=== PATIENT | female | born 2000 | race Caucasian/White ===

== ENCOUNTER 2022-07-11 07:33 | Inpatient (IN) ==
[2022-07-11] MEDS ORDERED: LIDOCAINE 1% LOCAL 20 ML VIAL INFIL PRN (08:05)
[2022-07-11] MEDS ORDERED: OXYTOCIN 30 UNITS/500 ML BAG IV PRN ×3 (08:05→18:39)
--- NOTE | 2022-07-11 08:27 | History & Physical Report ---
Date of Service July 11, 2022 Assessment & Plan (1) Encounter for induction of labor: Plan: Patient is a 21 yo at 40+1 WGA presenting to labor and delivery for induction. Blood type: O+, GBS neg, rubella immune Plan to start oxytocin and rupture membranes later if necessary Proceed with labor and vaginal delivery Admission and Anticipated Discharge Date Admission Date: July 11, 2022 History of Present Illness Primary Care Provider: Tian Barba MD Patient is a 21 yo female currently at 40+1WGA with an PEGGY 07/10/2022 as determined by LMP who is here for induction of labor. Her was uncomplicated. Denies timeable contractions; movement present; denies fluid loss; denies bloody show External FHT and external uterine monitors used; category I tracing; normal FHT variability Had regular appointments with OB. Labs: Blood type: O+ Antibody screen: neg Hgb: 11.8 (today) Hct: 33.8% (today) WBC: 9.57 (today) Plt: 175 (today) Rubella: immune VDRL/RPR: neg Gonorrhea: neg Chlamydia: neg HIV: neg HbSAg: neg GBS: neg Other screens: cff-DNA: low risk CF: declined SMA: declined Allergies Allergy/AdvReac Type Severity Reaction Status Date / Time No Known Allergies Allergy Verified 07/10/22 11:40 Home Medications Medication Instructions Recorded Confirmed Type vit 168-iron 27 mg-folic 1 cap PO DAILY #30 caps 02/22/22 07/11/22 Rx acid 800 mcg-omega3 235 mg capsule (One-A-Day -1) Patient History Medical History Chlamydia Migraine Seasonal allergies Surgical History S/P colonoscopy Family History Family/Other Ovarian cancer maternal great aunt Denies family history of Breast cancer Colorectal cancer Social History Smoking Status: Former smoker Tobacco Type: E-cigarettes / Vaping Second Hand Exposure: Yes; Hx Alcohol Use: No Hx Substance Use: No Preferred Language: Spanish Communication Ability: Effective Flag Maker Required: No Beliefs That Will Affect Care: None marital status: Single marital status details: vic Skelton (19) [phone] Current Living Situation: Family Current Living Situation Comment: lives with vic, his grandmother, dog, rabbit, cat-fob changing litter current occupational status: employed current occupation: [employer] Other Information That Helps Us Care for You: No Feels Safe at Home: Yes Safety Concerns: Feels Safe At This Time Assistive Devices: None Review of Systems Denies fever, chills, sweats. Denies SOB, difficulty breathing, chest pain, palpitations, and chest pressure. Denies breast pain. Denies dysuria. Denies headache or changes in vision. Physical Exam Physical Exam: General: Alert and oriented. No acute distress CV: Regular rate and rhythm. No murmurs. Respiratory: CTA bilaterally. No rhonchi, wheezes, or crackles. No increased work of breathing. Abdomen: Gravid; Soft, nontender upon palpation Pelvic: Dilated 4 cm; Effacement 90%; Station -[address] Sibley Lower extremities: No LE edema. No deep calf pain. Paige's negative bilaterally. Results & Data ([facility]) Vital Signs (Past 12 Hours) Vital Signs Temp Pulse Resp BP 07/11/22 07:48 36.8 C 75 16 128/79 07/11/22 07:44 75 128/79 Supervising Physician Co-Signing Physician Notes Resident Physician Supervision Note: I interviewed and examined the patient. Discussed with Dr. Krause and agree with findings and plan as documented in the note. Any exceptions or cl arifications are listed here: [None] Documented By: Thea Bhardwaj MD, FACOG Resident Activity Tracking Resident Involvement: Resident Care Provided Care Provided: OB Delivery
[2022-07-11 08:41] LABS: Hematocrit (blood only) 33.8 % (34.1-44.9); Hemoglobin 11.8 g/dl (12.0-16.0); Mean Corpuscular Hemoglobin 30.6 pg (25.0-34.0); Mean Corpuscular Hgb Conc 34.9 g/dL (32.0-36.0); Mean Corpuscular Volume 87.8 fL (80.0-100.0); Mean Platelet Volume 10.9 fL (9.4-12.3); Platelet Count 175 K/uL (130-400); RDW Coefficient of Variation 12.6 % (11.5-14.5); RDW Standard Deviation 39.9 fL (36.4-46.3); Red Blood Count 3.85 M/uL (3.93-5.22); White Blood Count 9.57 K/ul (4.8-10.8)
[2022-07-11] MEDS: LACTATED RINGER'S 1,000 ML IV PRN ×2 (09:10→13:05)
[2022-07-11] MEDS ORDERED: ePHEDrine sulfate 50 MG/ML AMP ONE (12:37)
[2022-07-11] MEDS ORDERED: fentaNYL citrate 100 MCG/2 ML VIAL ONE (12:40)
[2022-07-11] MEDS ORDERED: fentaNYL 2MCG/ML ROPIVACAINE 1.25MG/ML 100 ML BAG EPI ONE (12:41)
[2022-07-11] MEDS ORDERED: SODIUM CHLORIDE 0.9% INJ 10 ML VIAL ONE (12:41)
[2022-07-11] MEDS ORDERED: LIDOCAINE 2%/EPINEPHRINE 1:200,000 20 ML SDV ONE (12:41)
[2022-07-11] MEDS ORDERED: BUPIVACAINE 0.25% 30 ML VIAL ONE (12:41)
[2022-07-11] MEDS ORDERED: diphenhydrAMINE 50 MG/ML VIAL IV PRN (12:57)
[2022-07-11] MEDS ORDERED: NALBUPHINE HCL INJ 10 MG/ML AMP IV PRN (12:57)
[2022-07-11] MEDS ORDERED: NALOXONE HCL 0.4 MG/1 ML VIAL/CARP IV PRN (12:57)
[2022-07-11] MEDS ORDERED: NALOXONE HCL 1 MG in SODIUM CHLORIDE 0.9% 1000ML 1,000 ML IV PRN (12:57)
[2022-07-11] MEDS ORDERED: ePHEDrine sulfate 50 MG/ML AMP IV PRN (12:57)
[2022-07-11] MEDS ORDERED: fentaNYL 2MCG/ML ROPIVACAINE 1.25MG/ML 100 ML BAG EPI PRN (12:57)
[2022-07-11] MEDS ORDERED: ONDANSETRON INJ 2 MG/ML 2 ML VIAL IV PRN (12:57)
--- NOTE | 2022-07-11 13:00 | Anesthesiology Consultation ---
Date of Service July 11, 2022 Assessment & Plan (1) Encounter for pre-operative examination: Chart Review Chart Review: Patient NOT seen in Pre Admission Testing and Acceptable Risk for Labor Epidural Consults Requested none History Height/Weight Height: 5 ft 2 in Weight: 68.039 kg Allergies Allergy/AdvReac Type Severity Reaction Status Date / Time No Known Allergies Allergy Verified 07/10/22 11:40 Medications Home Medications Medication Instructions Recorded Confirmed Last Taken vit 168-iron 27 mg-folic 1 cap PO DAILY #30 caps 02/22/22 07/11/22 07/09/22 21:00 acid 800 mcg-omega3 235 mg capsule (One-A-Day -1) Active Medications Generic Name Dose Route Start Last Admin Trade Name Freq PRN Reason Stop Dose Admin Oxytocin 30 units in 500 mls @ 9 mls/hr 07/11/22 08:05 07/11/22 11:34 Pitocin IV 07/13/22 08:04 0.54 units/hr .Q24H PRN 9 mls/hr Labor Induction/Augmentation Titration Protocol 0.54 UNITS/HR Lactated Ringer's 1,000 mls @ 125 mls/hr 07/11/22 08:05 07/11/22 13:05 Lr IV 07/13/22 08:04 999 mls/hr .Q8H PRN Administration L&D Protocol Protocol Past Medical History Medical History Chlamydia Migraine Seasonal allergies Exercise / Class Metabolic Activity II 4-5 Yardwork/Stairs/Walk up hill Past Family History Family History Family/Other Ovarian cancer maternal great aunt Denies family history of Breast cancer Colorectal cancer Past Surgical History Surgical History S/P colonoscopy Past Anesthesia History No Hx of Anesthesia Complications and No Family Hx of Anesthesia Complications Social History Smoking Status: Former smoker tobacco type: e-cigarettes Hx Alcohol Use: No Hx Substance Use: No substance use type: does not use Physical Exam Vital Signs Last Vital Signs Temp 36.8 C 07/11/22 12:55 Pulse 83 07/11/22 13:24 Resp 18 01/04/23 12:55 BP 138/86 07/11/22 13:24 Pulse Ox 98 07/11/22 13:21 Testing Laboratory Results 07/11/22 08:13
[2022-07-11] MEDS ORDERED: ACETAMINOPHEN 325 MG TAB PO PRN (18:39)
[2022-07-11] MEDS ORDERED: bisacodyL 10 MG SUPP PR PRN (18:39)
[2022-07-11] MEDS ORDERED: DIPHTHERIA/TETANUS/PERTUSSIS 0.5 ML SYR/VIAL IM ONE (18:39)
[2022-07-11] MEDS ORDERED: HYDROCORTISONE ACETATE 25 MG SUPP PR PRN (18:39)
--- NOTE | 2022-07-11 18:59 | Anesthesia Procedure Note ---
Date of Service July 11, 2022 Anesthesia Post Epidural Note Vital Signs Vital Signs: Temp Pulse Resp BP Pulse Ox 36.9 C 89 20 137/73 97 07/11/22 17:30 07/11/22 18:51 07/11/22 18:50 07/11/22 18:51 07/11/22 18:31 Pain Intensity Bilateral Abdomen: Pain Intensity: 0 Notes Mental Status: alert / awake / arousable and participated in evaluation Nausea / Vomiting: adequately controlled Pain: adequately controlled Airway Patency, RR, SpO2: stable & adequate BP & HR: stable & adequate Hydration State: stable & adequate Neuraxial Anesthesia: was administered and sensory block is resolving Anesthetic Complications: no major complications apparent and Pt Satisfied with anesthetic care Epidural: Removed without complications and With tip intact
--- NOTE | 2022-07-11 19:14 | Delivery Summary ---
Vaginal Delivery Summary Date of Service July 11, 2022 Vaginal Delivery Summary and 1st Degree LAC Patient is a 21-year-old G1, P0 female EDC of 07/10/2022 who presented at 40-1/7 weeks for induction of labor because of postterm . Pitocin augmentation was begun, she received effective epidural analgesia. Membranes were ruptured for clear fluid. She progressed to full dilation with the urge to push. She pushed effectively over intact perineum for delivery of a viable female infant over intact perineum. After the head was delivered, there was a mild shoulder dystocia resolved with hyperflexion of the hips and suprapubic pressure. After the anterior shoulder was delivered, the rest the delivered easily and was placed on the mother's abdomen for further attention and drying. The infant was then vigorous crying and moving all 4 limbs. The cord was clamped and cut after approximately 30 seconds. After cord blood was obtained, the placenta was expressed intact with a three-vessel cord. A first- degree vaginal laceration was repaired with 3-0 chromic in the usual fashion. bleeding was controlled with dilute Pitocin and fundal massage. Estimated blood loss was 200 cc. The bladder was straight cathed for approximately 20 cc of urine after the delivery. Mother and infant were doing well after delivery. MNP Vaginal Delivery Charge Delivery Type Details: and 1st Degree LAC
[2022-07-11] MEDS: IBUPROFEN 600 MG TAB PO PRN (19:54)
[2022-07-11] MEDS: BENZOCAINE 20% AER SPR 82.5 GM CAN EXT PRN (19:55)
[2022-07-11] MEDS: DOCUSATE SODIUM 100 MG CAP PO SCH (22:15)
[2022-07-12] MEDS: IBUPROFEN 600 MG TAB PO PRN ×3 (02:43→16:12)
--- NOTE | 2022-07-12 06:30 | Obstetrical Progress Note ---
Date of Service <Thais Vannreaganhenrry - Last Filed: 07/12/22 06:57> July 12, 2022 Assessment & Plan <Thais Krause - Last Filed: 07/12/22 06:57> (1) care following vaginal delivery: Patient is PPD 1 s/p and doing well. - Eating well, voiding well, ambulating well - Vitals reviewed and within normal limits - Pain well controlled with analgesics - OOB, ambulation, diet progression as tolerated - Blood type: O+, GBS neg, rubella immune - Plan to discharge tomorrow - After discharge, 6 week follow up with Dr. Sibley <Thea Bhardwaj MD, FACOG - Last Filed: 07/12/22 07:26> (1) care following vaginal delivery: Subjective <Thais Krause - Last Filed: 07/12/22 06:57> Patient is a 21 yo female who is now PPD #1 following spontaneous vaginal delivery at 40+1 weeks. Reports feeling well this morning. She endorses abdominal cramping and 3-5/10 pain well managed on analgesics. Voiding without issue. Tolerating regular meals overnight and able to ambulate some. She has passed gas and no bowel movements. Persistent lochia with some improvement this morning. Currently bottle feeding. Review of Systems Denies fever, chills, sweats. Denies SOB, difficulty breathing, chest pain, palpitations, and chest pressure. Denies breast pain. Denies dysuria. Denies headache or changes in vision. Physical Exam <Thais VannDO chanda - Last Filed: 07/12/22 06:57> General: Alert and oriented. No acute distress. CV: Regular rate and rhythm. No murmurs. Respiratory: CTA bilaterally. No rhonchi, wheezes, or crackles. No increased work of breathing. Abdomen: Positive bowel sounds. Soft, nontender, non distended. Uterus: Fundus firm and palpable 2 cm below the umbilicus. Lower extremities: No LE edema. No deep calf pain. Paige's negative bilaterally. Results & Data ([facility]) <Thais VannDO chanda - Last Filed: 07/12/22 06:57> Vital Signs (Past 12 Hours) Vital Signs Temp Pulse Pulse Resp BP BP Pulse Ox 07/12/22 03:00 36.8 C 54 L 16 146/93 H 07/11/22 23:00 36.8 C 74 18 130/79 07/11/22 22:06 36.8 C 85 16 124/83 97 07/11/22 20:52 18 07/11/22 19:35 36.7 C 18 07/11/22 19:05 37.0 C 18 07/11/22 18:50 20 07/11/22 18:35 20 07/11/22 20:52 73 120/64 07/11/22 19:36 88 153/73 H 07/11/22 19:21 76 147/63 H 07/11/22 19:07 88 157/65 H 07/11/22 18:51 89 137/73 07/11/22 18:35 98 H 140/71 07/11/22 18:31 93 H 97 O2 Del Method 07/12/22 03:00 Room Air 07/11/22 23:00 Room Air 07/11/22 22:06 Room Air 07/11/22 20:52 07/11/22 19:35 07/11/22 19:05 07/11/22 18:50 07/11/22 18:35 07/11/22 20:52 07/11/22 19:36 07/11/22 19:21 07/11/22 19:07 07/11/22 18:51 07/11/22 18:35 07/11/22 18:31 <Thea Bhardwaj MD, FACOG - Last Filed: 07/12/22 07:26> Co-Signing Physician Notes Resident Physician Supervision Note: I interviewed and examined the patient. Discussed with Dr. Krause and agree with findings and plan as documented in the note. Any exceptions or clarifications are listed here: [None] Documented By: Thea Bhardwaj MD, FACOG Resident Activity Tracking <Thais Krause DO - Last Filed: 07/12/22 06:57> Resident Involvement: Resident Care Provided Care Provided: OB Delivery
[2022-07-12 06:31] LABS: Hematocrit (blood only) 32.5 % (34.1-44.9); Hemoglobin 11.6 g/dl (12.0-16.0); Mean Corpuscular Hemoglobin 30.6 pg (25.0-34.0); Mean Corpuscular Hgb Conc 35.7 g/dL (32.0-36.0); Mean Corpuscular Volume 85.8 fL (80.0-100.0); Mean Platelet Volume 10.9 fL (9.4-12.3); Platelet Count 178 K/uL (130-400); RDW Coefficient of Variation 12.5 % (11.5-14.5); RDW Standard Deviation 38.7 fL (36.4-46.3); Red Blood Count 3.79 M/uL (3.93-5.22); White Blood Count 15.71 K/ul (4.8-10.8)
[2022-07-12] MEDS ORDERED: PRENATAL VITAMIN 1 TAB PO SCH (08:00)
[2022-07-12] MEDS: DOCUSATE SODIUM 100 MG CAP PO SCH ×2 (08:29→08:31)
[2022-07-12] MEDS: BENZOCAINE 20% AER SPR 82.5 GM CAN EXT PRN (19:35)
[2022-07-12] MEDS ORDERED: bisacodyL 5 MG TABEC PO SCH (20:00)
== END 2022-07-12 20:15 | disposition home or self-care (01) | DRG 807 ==
LOC: 4S1 07:33 → 4E2 21:40

== ENCOUNTER 2024-10-22 16:24 | Inpatient (IN) ==
[2024-10-22] MEDS ORDERED: OXYTOCIN 30 UNITS/NSS 30 UNITS/500 ML BAG IV PRN (17:23)
[2024-10-22] MEDS ORDERED: LIDOCAINE 1% LOCAL 20 ML VIAL INFIL PRN (17:23)
--- NOTE | 2024-10-22 17:25 | History & Physical Report ---
Date of Service October 22, 2024 Assessment & Plan (1) Encounter for supervision of normal in multigravida: Plan srom for about 2.5 hours. no onset of labor at this point. Discussed immediate pitocin augmentation or expectant management with augmentation if no significant change in 6-8 hours s/p rom. Considering. Wants epidural. fetus category one. Anticipate . History of Present Illness Chief Complaint: rom Primary Care Provider: Mildred Wesley DO Patient is a 23yowf with iup at 37 4/7 who presents with gross srom at 3pm, clear. notes some cramping but no major contractions. no vb. +fm. and Delivery Plans Current everyday vaping OB Labs: Blood Type O Positive 03/31/24 Antibody Screen NEGATIVE 03/31/24 Hgb 11.4 g/dl (12.0-16.0) L 08/18/24 Hct 33.2 % (37.0-47.0) L 08/18/24 MCV 85.8 fL (80.0-100.0) 03/31/24 Plt Count 269 K/uL (130-400) 03/31/24 Rubella IgG Antibody Immune (Immune) 03/31/24 Treponema pallidum Ab Negative (Negative) 08/31/24 Hep Bs Antigen Negative (Negative) 08/31/24 Hep Bs Antigen NON-REACTIVE (NON-REACTIVE) 12/07/21 Hepatitis C Antibody Negative (Negative) 08/31/24 Hepatitis C Ab (EIA) NON-REACTIVE (NON-REACTIVE) 12/07/21 HIV 1&2 Ab/P24 Ag 4thGn Negative (Negative) 08/31/24 Glucose 1 Hr 50 gm 154 mg/dl (70-130) H 08/18/24 Maternal Serum AFP 32.7 ng/mL 05/26/24 OB Optional Labs: Chlamydia trachomatis RNA Not Detected (NotDetected) 08/26/24 Neisseria gonorrhoeae RNA Not Detected (NotDetected) 08/26/24 Thyroid Stimulating Hormone (TSH) 1.578 uIu/ml (0.300-4.500) 09/13/23 Alpha Fetoprotein Triple Screen SEE NOTE 05/26/24 Labs Reviewed: cfdna-low risk--mln afp neg gbs neg Allergies Allergy/AdvReac Type Severity Reaction Status Date / Time No Known Allergies Allergy Verified 10/22/24 16:59 Home Medications Medication Instructions Recorded Confirmed Type vitamin with calcium 1 tab PO DAILY #90 tabs 03/05/24 10/22/24 Rx no.72-iron 27 mg-folic acid 1 mg tablet ( Plus (calcium carbonate)) escitalopram oxalate 10 mg tablet 10 mg PO DAILY 07/20/24 10/22/24 History Patient History Medical History IBS (irritable bowel syndrome) LGSIL on Pap smear of cervix Migraine Seasonal allergies Chlamydia Surgical History S/P tooth extraction S/P wisdom tooth extraction S/P colonoscopy Family History Family/Other Ovarian cancer maternal great aunt Father Heart disease Grandfather (Paternal) Diabetes Denies family history of Breast cancer Colorectal cancer Social History Smoking Status: Never smoker Tobacco Type: E-cigarettes / Vaping Second Hand Exposure: Yes; Do You Dip or Chew Tobacco: No; Hx Alcohol Use: No Hx Substance Use: No Preferred Language: Liberian Communication Ability: Effective Auto Locator Required: No Beliefs That Will Affect Care: None marital status: Single marital status details: vic Nice (23) [phone] Current Living Situation: Family Current Living Situation Comment: lives with daughter current occupational status: unemployed current occupation: looking for job currently Other Information That Helps Us Care for You: No Feels Safe at Home: Yes Safety Concerns: Feels Safe At This Time Assistive Devices: None OB History Past Pregnancies Del. Date GA wks Lbr Lgth wt Sex Type del Anes Place Del Prov ? Comment 07/17/17 Aborted-Spontaneous 07/11/22 7-14 F Epidural [facility] Dr Phyllis Sibley [employer] History see above Physical Exam Constitutional: WD/WN, vitals as above Gastrointestinal (Abdomen): soft, nt, gravid Psychiatric: A+Ox3, euthymic affect Genitourinary: cx--3/100/-2 toco--pa and irritability efm--150 with mod variability, accels to 170s, no decels Results & Data Vital Signs (Past 12 Hours) Vital Signs Temp Pulse Resp BP 10/22/24 16:33 83 119/64 10/22/24 16:32 36.9 C 20 Coding Level of Care Code None Diagnoses Encounter for supervision of normal in multigravida Z34.80
[2024-10-22 17:51] LABS: Hematocrit (blood only) 32.7 % (37.0-47.0); Hemoglobin 11.3 g/dl (12.0-16.0); Mean Corpuscular Hemoglobin 28.2 pg (25.0-34.0); Mean Corpuscular Hgb Conc 34.6 g/dL (32.0-36.0); Mean Corpuscular Volume 81.5 fL (80.0-100.0); Mean Platelet Volume 10.6 fL (9.4-12.4); Platelet Count 201 K/uL (130-400); RDW Coefficient of Variation 12.2 % (11.5-14.5); Red Blood Count 4.01 M/uL (4.20-5.40); White Blood Count 8.01 K/ul (4.8-10.8)
--- NOTE | 2024-10-22 20:26 | Communication Note ---
Date of Service: October 22, 2024 category one strip, occasional contractions. is ok with starting pitocin.
[2024-10-22] MEDS: OXYTOCIN 30 UNITS/NSS 30 UNITS/500 ML BAG IV PRN (20:31)
[2024-10-22] MEDS: LACTATED RINGER'S 1,000 ML IV PRN (20:32)
--- NOTE | 2024-10-23 00:11 | Anesthesiology Consultation ---
Date of Service October 23, 2024 Assessment & Plan Chart Review Chart Review: Patient NOT seen in Pre Admission Testing and Acceptable Risk for Labor Epidural Consults Requested none ASA ASA2 Proposed Anesthesia Anesthesia Type: Labor Epidural Risk / Benefits Reviewed With: PT / POA / Parent / Guardian, Accepts Plan and Informed Consent Obtained History Height/Weight Height: 5 ft 2 in Weight: 58.513 kg Allergies Allergy/AdvReac Type Severity Reaction Status Date / Time No Known Allergies Allergy Verified 10/22/24 16:59 Medications Home Medications Medication Instructions Recorded Confirmed Last Taken vitamin with calcium 1 tab PO DAILY #90 tabs 03/05/24 10/22/24 03/07/24 no.72-iron 27 mg-folic acid 1 mg tablet ( Plus (calcium carbonate)) escitalopram oxalate 10 mg tablet 10 mg PO DAILY 07/20/24 10/22/24 Unknown Active Medications Generic Name Dose Route Start Last Admin Trade Name Freq PRN Reason Stop Dose Admin Lactated Ringer's 1,000 mls @ 125 mls/hr 10/22/24 17:23 10/22/24 20:32 Lr IV 10/23/24 17:22 125 mls/hr .Q8H PRN Administration L&D Protocol Protocol Oxytocin 30 units in 500 mls @ 13 mls/hr 10/22/24 17:23 10/22/24 23:35 Pitocin 30 Units/Nss IV 10/24/24 17:22 0.78 units/hr .Q24H PRN 13 mls/hr Labor Induction/Augmentation Titration Protocol 0.78 UNITS/HR NPO Date Last Intake of Fluids: 10/23/24 Time Last Intake of Fluids: 00:01 Date Last Intake of Solids: 10/23/24 Time Last Intake of Solids: 15:00 Past Medical History Medical History IBS (irritable bowel syndrome) LGSIL on Pap smear of cervix Migraine Seasonal allergies Chlamydia Exercise / Class Metabolic Activity 1 > 8 Run/Swim/Ski/Tennis Past Family History Family History Family/Other Ovarian cancer maternal great aunt Father Heart disease Grandfather (Paternal) Diabetes Denies family history of Breast cancer Colorectal cancer Past Surgical History Surgical History S/P tooth extraction S/P wisdom tooth extraction S/P colonoscopy Past Anesthesia History No Hx of Anesthesia Complications and No Family Hx of Anesthesia Complications History of PONV No Hx of PONV and No Hx of Motion Sickness Social History Smoking Status: Never smoker tobacco type: e-cigarettes Do You Dip or Chew Tobacco: No Hx Alcohol Use: No Hx Substance Use: No substance use type: does not use Review of Systems ROS Unobtainable: All systems reviewed & are unremarkable except as noted in HPI & below Physical Exam Vital Signs Last Vital Signs Temp 36.9 C 10/22/24 23:10 Pulse 68 10/23/24 00:02 Resp 18 10/22/24 23:10 BP 126/76 10/23/24 00:02 Pulse Ox 100 10/23/24 00:02 ENMT Mouth: no TMJ abnormality Thyromental Distance: > or= 3.5 Finger Breadths Mallampati Class: II Neck normal visual inspection and trachea midline; neck extension not limited Respiratory normal respiratory effort Auscultation: lungs clear to auscultation bilaterally Cardiovascular Rate/Rhythm: regular rate and regular rhythm Heart Sounds: no murmur Musculoskeletal Spine: normal cervical ROM Extremities: full ROM of extremities Neurologic moves all extremities Psychiatric Orientation: alert and oriented x 3 Testing Laboratory Results 10/22/24 17:34
[2024-10-23] MEDS: BUPIVACAINE 0.25% PF 30 ML VIAL ONE (00:23)
[2024-10-23] MEDS: LIDOCAINE 2%/EPINEPHRINE 1:200,000 20 ML PF ONE (00:23)
[2024-10-23] MEDS: fentANYL 2 MCG/ML BUPIVacaine 0.125%-NSS 100ML BAG ONE (00:23)
[2024-10-23] MEDS: fentaNYL citrate PF 100 MCG/2 ML VIAL ONE (00:23)
[2024-10-23] MEDS ORDERED: LIDOCAINE 2% MPF LOCAL 5 ML VIAL EPI PRN (00:30)
[2024-10-23] MEDS ORDERED: SODIUM CHLORIDE 0.9% PF INJ 10 ML VIAL EPI PRN (00:30)
[2024-10-23] MEDS ORDERED: diphenhydrAMINE 50 MG/ML VIAL IV PRN (00:30)
[2024-10-23] MEDS ORDERED: BUPIVACAINE 0.25% PF 30 ML VIAL EPI PRN (00:30)
[2024-10-23] MEDS ORDERED: NALBUPHINE HCL INJ 10 MG/ML AMP IV PRN (00:30)
[2024-10-23] MEDS ORDERED: NALOXONE HCL 1 MG in SODIUM CHLORIDE 0.9% 1,000 ML IV PRN (00:30)
[2024-10-23] MEDS ORDERED: fentaNYL citrate PF 100 MCG/2 ML VIAL EPI PRN (00:30)
[2024-10-23] MEDS ORDERED: ePHEDrine sulfate 50 MG/ML AMP IV PRN (00:30)
[2024-10-23] MEDS ORDERED: ROPIVACAINE 0.5% PF 5 MG/ML 20 ML VIAL EPI PRN (00:30)
[2024-10-23] MEDS ORDERED: fentANYL 2 MCG/ML BUPIVacaine 0.125%-NSS 100ML BAG EPI PRN (00:30)
[2024-10-23] MEDS ORDERED: NALOXONE HCL 0.4 MG/1 ML VIAL/CARP IV PRN (00:30)
--- NOTE | 2024-10-23 01:11 | Labor Progress Brief Note ---
Date of Service October 23, 2024 Subjective comfortable after epidural Assessment & Plan (1) Encounter for supervision of normal in multigravida: Plan continue current management. fetus category one. Admission and Anticipated Discharge Date Admission Date: October 22, 2024 Physical Exam Physical Exam: cx0--5/100/-2 toco--q2-4min, piit at 14 efm--130s wtih mod varability, accels to 150s, no decels Results & Data Vital Signs (Past 12 Hours) Vital Signs Temp Pulse Resp BP Pulse Ox 10/23/24 01:07 73 99 10/23/24 01:06 73 121/88 10/23/24 01:02 80 98 10/23/24 01:00 76 131/63 10/23/24 00:57 68 98 10/23/24 00:52 70 100 10/23/24 00:51 72 120/69 10/23/24 00:47 68 100 10/23/24 00:44 80 119/65 10/23/24 00:42 75 99 10/23/24 00:37 70 100 10/23/24 00:36 62 120/86 10/23/24 00:32 70 99 10/23/24 00:29 69 116/71 10/23/24 00:27 99 10/23/24 00:27 74 10/23/24 00:27 72 121/74 10/23/24 00:25 68 122/77 10/23/24 00:23 71 136/95 10/23/24 00:22 79 100 10/23/24 00:21 82 114/80 10/23/24 00:17 87 99 10/23/24 00:12 87 98 10/23/24 00:07 81 99 10/23/24 00:02 68 126/76 100 10/22/24 23:13 74 116/72 10/22/24 23:10 18 10/22/24 23:10 36.9 C 18 10/22/24 21:04 36.8 C 10/22/24 20:39 76 113/70 10/22/24 19:00 37.1 C 18 10/22/24 18:57 83 112/55 L 10/22/24 16:33 83 119/64 10/22/24 16:32 36.9 C 20 Coding Level of Care Code None Diagnoses Encounter for supervision of normal in multigravida Z34.80
[2024-10-23] MEDS: fentaNYL citrate PF 100 MCG/2 ML VIAL EPI STA (01:31)
[2024-10-23] MEDS: ePHEDrine sulfate 50 MG/ML AMP ONE (01:31)
[2024-10-23] MEDS: BUPIVACAINE 0.25% PF 30 ML VIAL EPI STA (01:31)
[2024-10-23] MEDS: SODIUM CHLORIDE 0.9% PF INJ 10 ML VIAL ONE (01:31)
[2024-10-23] MEDS: LIDOCAINE 2%/EPINEPHRINE 1:200,000 20 ML PF EPI STA (01:32)
[2024-10-23] MEDS: SODIUM CHLORIDE 0.9% PF INJ 10 ML VIAL EPI STA (01:32)
[2024-10-23] MEDS: CALCIUM CARBONATE 500 MG CHEWABLE TAB PO PRN (01:36)
--- NOTE | 2024-10-23 04:07 | Delivery Summary ---
Vaginal Delivery Summary Date of Service October 23, 2024 Vaginal Delivery Summary Pre-operative Diagnosis: at 37 5/7 weeks srom Post-operative Diagnosis: same Procedure: pitocin augmentin epidural EBL: 154cc Anesthesia: epidural Procedure: The patient pushed for one contraction and the head delivered precipitously. I then entered room. I was readily available in the call room. The head delivered in giorgio. The rest of the was then delivered by me through a nuchal cord easily. The nose and mouth were maria m suctioned. The infant was a bit floppy so the cord was clamped and cut and the infant taken to the warmer. Cord blood obtained. Placenta delivered spontaneous, intact with a three vessel cord. Cervix/sulci/rectum/perineum were intact. Hemostasis obtained with dilute pitocin and fundal massage. Apgars were 7/9. Mother and baby doing well at the end of the delivery. [facility] Vaginal Delivery Charge Delivery Type Details: [facility]
[2024-10-23] MEDS ORDERED: BENZOCAINE 20% SPRY 85 APPLN/85 GM CAN EXT PRN (04:52)
[2024-10-23] MEDS ORDERED: HYDROCORTISONE ACETATE 25 MG SUPP PR PRN (04:52)
[2024-10-23] MEDS ORDERED: OXYTOCIN 30 UNITS/NSS 30 UNITS/500 ML BAG IV PRN (04:52)
[2024-10-23] MEDS ORDERED: oxyCODONE/ACETAMINOPHEN 5mg/325mg TAB PO PRN (04:52)
[2024-10-23] MEDS: IBUPROFEN 600 MG TAB PO PRN (05:06)
[2024-10-23] MEDS: ACETAMINOPHEN 325 MG TAB PO PRN (05:07)
[2024-10-23] MEDS: DIPHTHER/TETAN/PERTUS Vaccine (Tdap, Adol/Adult) 0.5mL IM ONE (06:34)
[2024-10-23] MEDS: PRENATAL VITAMIN 1 TAB PO SCH (07:52)
[2024-10-23] MEDS: DOCUSATE SODIUM 100 MG CAP PO SCH (07:52)
--- NOTE | 2024-10-23 11:51 | Anesthesia Procedure Note ---
Date of Service October 23, 2024 Anesthesia Post Epidural Note Vital Signs Vital Signs: Temp Pulse Resp BP Pulse Ox O2 Del Method 36.6 C 57 L 18 111/72 99 Room Air 10/23/24 07:30 10/23/24 07:30 10/23/24 07:30 10/23/24 07:30 10/23/24 04:02 10/23/24 07:30 Notes Mental Status: alert / awake / arousable and participated in evaluation Patient Amnestic to Procedure: No Nausea / Vomiting: adequately controlled Pain: adequately controlled Airway Patency, RR, SpO2: stable & adequate BP & HR: stable & adequate Hydration State: stable & adequate Neuraxial Anesthesia: was administered and sensory block resolved Anesthetic Complications: no major complications apparent and Pt Satisfied with anesthetic care Epidural: Removed without complications and With tip intact
[2024-10-23] MEDS: ESCITALOPRAM OXALATE 10 MG TAB PO SCH (22:21)
[2024-10-23 23:28] VITALS: RESP 16
--- NOTE | 2024-10-24 06:42 | Obstetrical Progress Note ---
Date of Service <Lazaro Richards MD - Last Filed: 10/24/24 07:37> October 24, 2024 Assessment & Plan <Lazaro Richards MD - Last Filed: 10/24/24 07:37> (1) care and examination: Plan PPD1 s/p at 37+ wga: Stable. Rh+, gbs neg, ri, vitals & H/H noted Continue routine care, OOB and ambulation, diet as tolerated Plan for DC today <Luz Marina Nice DO - Last Filed: 10/24/24 07:56> (1) care and examination: Subjective <Lazaro Richards MD - Last Filed: 10/24/24 07:37> Patient is a 23yo who is PPD#1 following at 37 5/7 weeks. Abd pain/cramping is well managed on analgesics Voiding w/o issue Tolerating meals Ambulating normally +passing gas Lochia minimal, diminishing Planning to breastfeed. Constitutional: no fever, no chills or no sweats Respiratory: no dyspnea Cardiovascular: no chest pain, no palpitations or no calf pain Breast: no breast pain Gastrointestinal: no nausea or no vomiting Genitourinary (female): no dysuria Neurologic: no headache(s) no changes in vision, no headaches Physical Exam <Lazaro Richards MD - Last Filed: 10/24/24 07:37> General: Alert, oriented. No acute distress. Cardiac: Regular rate and rhythm, no murmurs, rubs, or gallops. Respiratory: Clear to auscultation bilaterally. No increased work of breathing. Symmetrical chest rise. No respiratory distress. Abdomen: Soft, nontender, nondistended. Bowel sounds present. Uterus: Uterine fundus firm, nontender, palpable 1 cm below the umbilicus. Lower extremities: No lower extremity edema or swelling. No deep calf pain. Results & Data <Lazaro Richards MD - Last Filed: 10/24/24 07:37> Vital Signs (Past 12 Hours) Vital Signs Temp Pulse Resp BP Pulse Ox O2 Del Method 10/23/24 23:27 36.7 C 59 L 16 108/67 98 Room Air 10/23/24 20:00 36.4 C L 69 18 140/86 Room Air Laboratory Results 10/24/24 06:15 Supervising Physician <Luz Marina Nice DO - Last Filed: 10/24/24 07:56> Co-Signing Physician Notes Resident Physician Supervision Note: I was present with Dr. Richards during the history and exam. I discussed the case with the resident and agree with the findings and plan as documented in the note. Any exceptions or clarifications are listed here: PPD#1 doing well, would like to go home today. Reviewed DC instructions, followup in office in 6w. Documented By: Luz Marina Nice DO Resident Activity Tracking <Lazaro Richards MD - Last Filed: 10/24/24 07:37> Resident Involvement: Resident Care Provided Care Provided: Adult Hospital Medicine and OB Delivery
[2024-10-24 07:01] LABS: Hematocrit (blood only) 30.4 % (37.0-47.0); Hemoglobin 10.3 g/dl (12.0-16.0)
[2024-10-24 07:44] VITALS: BP 122/78; PULSE 75; TEMP 97.7; O2SAT 97
[2024-10-24] MEDS ORDERED: bisacodyL 5 MG TABEC PO SCH (20:00)
[2024-10-25] MEDS ORDERED: bisacodyL 10 MG SUPP PR PRN
== END 2024-10-24 09:59 | disposition home or self-care (01) | DRG 807 ==
LOC: OPB 16:24 → 4S1 16:25 → 4E2 10-23 06:37